=== PATIENT | female | born 1975 | race Two or more races ===

== ENCOUNTER 2023-07-05 16:28 | Emergency (ER) | payer BC, SELFPAY ==
[2023-07-05 16:33] VITALS: BP 122/88; PULSE 80; RESP 16; TEMP 36.9; O2SAT 98; BMI 35.4
== END 2023-07-05 17:30 | disposition left against medical advice (07) ==
PROVIDERS: Emergency Provider Emergency Medicine; PCP Nurse Practitioner
DX: Z53.21 Procedure and treatment not carried out due to patient leaving prior to being seen by health care provider (principal)

== ENCOUNTER 2023-12-24 18:59 | Emergency (ER) | payer BC, SELFPAY ==
[2023-12-24 19:05] VITALS: BP 155/101; PULSE 95; TEMP 36.7; O2SAT 99; BMI 37.4
[2023-12-24 19:08] VITALS: BP 155/101; O2SAT 99
[2023-12-24 19:10] VITALS: O2SAT 98
--- NOTE | 2023-12-24 19:10 | ECG_ITS ---
[facility] Test Date: 2023-12-24 Pat Name: BECKY OLIVAS Department: Room: - Gender: Female [employer]oc[employer] In[employer]: : [id number] Requested By: KARI RICHARDSON Order Number: [id number] Reading MD: SIENNA BLEVINS Measurements Intervals [place] Rate: 96 P: 24 [place]: 148 QRS: 31 QRSD: 84 T: 6 QT: 320 QTc: 374 Interpretive Statements 1100 Sinus rhythm 2420 RSR (QR) in lead V1/V2, consistent with right ventricular conduction delay 8102 Low QRS voltage in chest leads 9130 borderline ECG Compared to ECG 12/19/2022 05:13:13 No significant changes Electronically Signed On 12-26-2023 10:47:24 EDT by SIENNA BLEVINS
--- OUTSIDE RECORDS SUMMARY | 2023-12-24 19:15 | XMS_ITS | CCD ---
Author Organization [facility] Care Team Providers Care Maintenance Aide Name Role Phone LAURE, DR LILA Pozo Consulting Unavailable AICHHOLZ, TWISTING FRAME CHANGER KARI Primary Care Unavailable WEST, DR LILA Pozo Attending Unavailable LAURE, DR LILA Pozo Admitting Unavailable ZIEBER, DR BRIAN Duran Consulting Unavailable AICHHOLZ, TWISTING FRAME CHANGER KARI Primary Care Unavailable WEST, DR LILA Pozo Attending Unavailable LAURE, DR LILA Pozo Admitting Unavailable LAURE, DR LILA Pozo Consulting Unavailable AICHHOLZ, TWISTING FRAME CHANGER KARI Primary Care Unavailable WEST, DR LILA Pozo Attending Unavailable LAURE, DR LILA Pozo Admitting Unavailable ZIEBER, DR BRIAN Duran Consulting Unavailable LISHA ORTIZ Consulting Unavailable ANGEL, LISHA Attending Unavailable ANGEL, LISHA Admitting Unavailable AICHHOLZ, TWISTING FRAME CHANGER KARI Primary Care Unavailable ANTHONY TAMEZ Consulting Unavailable ARIADNE CASILLAS Consulting Unavailable CHELSY .MALCOLM Consulting Unavailable AICHHOLZ, TWISTING FRAME CHANGER KARI Primary Care Unavailable ANASTASIIA .MICKEY Attending Unavailable ANASTASIIA ., MICKEY Admitting Unavailable MICKEY MARISCAL Consulting Unavailable KINGA .JACINTO Consulting UnavailBrian Macias, DR NAVARRO Attending Unavailable ROX ., DR NAVARRO Admitting Unavailable AICHHOLZ, TWISTING FRAME CHANGER KARI Primary Care Unavailable SHERIDANSER, KARI Consulting Unavailable AICHHOLZ, TWISTING FRAME CHANGER KARI Consulting Unavailable AICHHOLZ, TWISTING FRAME CHANGER KARI Primary Care Unavailable AICHHOLZ, TWISTING FRAME CHANGER KARI Attending Unavailable AICHHOLZ, TWISTING FRAME CHANGER KARI Admitting Unavailable AICHHOLZ, TWISTING FRAME CHANGER KARI Consulting Unavailable AICHHOLZ, TWISTING FRAME CHANGER KARI Primary Care Unavailable AICHHOLZ, TWISTING FRAME CHANGER KARI Attending Unavailable AICHHOLZ, TWISTING FRAME CHANGER KARI Admitting Unavailable MARKOS, DR BRIAN Duran Consulting Unavailable AICHHOLZ, TWISTING FRAME CHANGER KARI Consulting Unavailable AICHHOLZ, TWISTING FRAME CHANGER KARI Primary Care Unavailable AICHHOLZ, TWISTING FRAME CHANGER KARI Attending Unavailable AICHHOLZ, TWISTING FRAME CHANGER KARI Admitting Unavailable MARKOS, DR BRIAN Duran Consulting Unavailable LAURE, DR LILA Pozo Consulting Unavailable AICHHOLZ, TWISTING FRAME CHANGER KARI Primary Care Unavailable WEST, DR LILA Pozo Attending Unavailable LAURE, DR LILA Pozo Admitting Unavailable WEST, DR LILA Pozo Consulting Unavailable HANSATOMAS VELASQUEZ Attending Unavailable HANSATOMAS VELASQUEZ Admitting Unavailable HANSATOMAS VELASQUEZ Primary Care Unavailable TOMAS RICHARDSON Consulting Unavailable LAURE, DR LILA Pozo Consulting Unavailable TOMAS RICHARDSON Primary Care Unavailable LAURE, DR LILA Pozo Attending Unavailable LAURE, DR LILA Pozo Admitting Unavailable Allergies Allergy Classification Reported Allergen(s) Allergy Type Date of Onset Reaction(s) Facility (1 source) Ibuprofen Drug Allergy 02-04-2016 [facility] Repository Problems Active Problems Problem Classification Problem Date Documented Da te Episodic/Chronic Diverticulosis and diverticulitis (1 source) Diverticulitis of large intestine without perforation or abscess without bleeding; Translations: [DVTRCLI LG INT NO PERF/ABSC W/O BL] Onset: 2 Chronic Headache; including migraine (4 sources) Headache; including migraine; Translations: [HEADACHE UNSPECIFIED] Onset: 3 Phlebitis; thrombophlebitis and thromboembolism (8 sources) Phlebitis and thrombophlebitis of superficial vessels of left lower extremity; Translations: [Phlebitis and thrombophlebitis of superficial vessels of right lower extremity] Onset: 3 Episodic Residual codes; unclassified (1 source) Chills (without fever); Translations: [CHILLS WITHOUT FEVER] Onset: 3 Episodic Varicose veins of lower extremity (4 sources) Varicose veins of bilateral lower extremities with pain; Translations: [VARICOSE VNS KAREEM LOW EXTREM W/PAIN] Onset: 3 Episodic Viral infection (4 sources) COVID-19; Translations: [COVID-19] Onset: 2 Past or Other Problems Problem Classification Problem Date Documented Da te Episodic/Chronic Abdominal pain (4 sources) Unspecified abdominal pain; Translations: [UNSPECIFIED ABDOMINAL PAIN] Onset: 07-12-2022 Episodic Contraceptive and procreative management (1 source) Tubal ligation status; Translations: [TUBAL LIGATION STATUS] Onset: 07-15-2022 Episodic Fever of unknown origin (3 sources) Fever, unspecified; Translations: [FEVER UNSPECIFIED] Onset: 01-20-2022 Episodic Malaise and fatigue (1 source) Weakness; Translations: [WEAKNESS] Onset: 01-30-2022 Episodic Nausea and vomiting (1 source) Nausea; Translations: [NAUSEA] Onset: 07-15-2022 Episodic Other gastrointestinal disorders (1 source) Diarrhea, unspecified; Translations: [DIARRHEA UNSPECIFIED] Onset: 07-15-2022 Episodic Other non-traumatic joint disorders (4 sources) Pain in left knee; Translations: [PAIN IN LEFT KNEE] Onset: 08-10-2022 Episodic Other upper respiratory infections (1 source) Acute upper respiratory infection, unspecified; Translations: [ACUTE UP RESPIRATORY INFECTION UNS] Onset: 01-23-2022 Episodic Urinary tract infections (1 source) Urinary tract infection, site not specified; Translations: [UTI SITE NOT SPECIFIED] Onset: 07-15-2022 Episodic Results Test Name Value Interpretation Reference Range Facility CARDIAC VENKATA 3-6on 3 CK [Catalytic activity/Vol] 78 U/L Normal 26-192 [facility] Comment on above: Performed By: #### C BC #### [facility] [address] [place] [address] Dr. Castro Alcaraz CK.MB [Mass/Vol] 0.67 ng/mL Normal <=3.60 [facility] Comment on above: Performed By: #### C BC #### [facility] [address] [place] [address] Dr. Castro Alcaraz HSTROP 4.0 pg/mL Normal 4.0-51.3 [facility] Comment on above: Result Comment: CUT- OFF POINTS HAVE BEEN ESTABLISHED BASED ON THE FOURTH UNIVERSAL DEFINITIONS OF MYOCARDIAL INFARCTION. THE UPPER REFERENCE LIMIT (URL) OF TROPONIN, DEFINED THE 99TH PERCENTILE OF cTnI DISTRIBUTION IN A REFERENCE POPULATION, HAS BEEN CONFIRMED THE DECISION THRESHOLD FOR DE DIAGNOSIS. Performed By: #### C BC #### [facility] [address] [address] [address] Castro Alcaraz CARDIAC VENKATA ADMITon 023 CK [Catalytic activity/Vol] 88 U/L Normal 26-192 [facility] Comment on above: Performed By: #### SHERLY HARVEY #### [facility] [address] [place] [address] Dr. Castro Alcaraz CK.MB [Mass/Vol] ng/mL Normal <=3.60 [facility] Comment on above: Performed By: #### SHERLY HARVEY #### [facility] [address] [place] [address] Dr. Castro Alcaraz HSTROP <4.0 Normal 4.0-51.3 [facility] Comment on above: Result Comment: CUT- OFF POINTS HAVE BEEN ESTABLISHED BASED ON THE FOURTH UNIVERSAL DEFINITIONS OF MYOCARDIAL INFARCTION. THE UPPER REFERENCE LIMIT (URL) OF TROPONIN, DEFINED THE 99TH PERCENTILE OF cTnI DISTRIBUTION IN A REFERENCE POPULATION, HAS BEEN CONFIRMED THE DECISION THRESHOLD FOR DE DIAGNOSIS. Performed By: #### SHERLY HARVEY #### [facility] [address] [place] [address] Dr. Castro Alcaraz KELLY 33 ng/mL Normal 9-82 [facility] Comment on above: Performed By: #### SHERLY HARVEY #### [facility] [address] [place] [address] Dr. Castro Alcaraz CBC AUTO DIFFon 12-19-2022 BASO # 0.1 103/ul Normal 0.0-0.1 [facility] Comment on above: Performed By: #### C BC #### [facility] [address] [place] [address] Dr. Castro Alcaraz Basophils/100 WBC (Bld) 0.4 % Normal 0.2-2.0 [facility] Comment on above: Performed By: #### C BC #### [facility] [address] [place] [address] Dr. Castro Alcaraz EO # 0.2 103/ul Normal 0.0-0.7 [facility] Comment on above: Performed By: #### C BC #### [facility] [address] [place] [address] Dr. Castro Alcaraz Eosinophils/100 WBC (Bld) 1.8 % Normal 0.9-7.0 [facility] Comment on above: Performed By: #### C BC #### [facility] [address] [place] [address] Dr. Castro Alcaraz Erythrocyte distribution width (RBC) [Ratio] 13.1 % Normal 11.0-15.0 [facility] Comment on above: Performed By: #### C BC #### [facility] [address] [place] [address] Dr. Castro Alcaraz Hematocrit (Bld) [Volume fraction] 40.5 % Normal 36.0-48.0 [facility] Comment on above: Performed By: #### C BC #### [facility] [address] [place] [address] Dr. Castro Alcaraz Hemoglobin (Bld) [Mass/Vol] 13.3 g/dL Normal 12.0-16.0 [facility] Comment on above: Performed By: #### C BC #### [facility] [address] [place] [address] Dr. Castro Alcaraz IG # 0.03 10e3/ul Normal 0.00-0.03 [facility] Comment on above: Performed By: #### C BC #### [facility] [address] [place] [address] Dr. Castro Alcaraz IG % 0.3 % Normal 0.0-0.5 [facility] Comment on above: Performed By: #### C BC #### [facility] [address] [place] [address] Dr. Castro Alcaraz LYMPH # 4.9 103/ul Critically high 1.2-3.8 [facility] Comment on above: Performed By: #### C BC #### [facility] [address] [place] [address] Dr. Castro Alcaraz Lymphocytes/100 WBC (Bld) 43.0 % Normal 20.5-60.0 [facility] Comment on above: Performed By: #### C BC #### [facility] [address] [place] [address] Dr. Castro Alcaraz MANUAL DIFF REQ NO Normal [facility] Comment on above: Performed By: #### C BC #### [facility] [address] [place] [address] Dr. Castro Alcaraz MCH (RBC) [Entitic mass] 28.7 pg Normal 26.7-34.0 [facility] Comment on above: Performed By: #### C BC #### [facility] [address] [place] [address] Dr. Castro Alcaraz MCHC (RBC) [Mass/Vol] 32.8 g/dL Normal 29.9-35.2 [facility] Comment on above: Performed By: #### C BC #### [facility] [address] [place] [address] Dr. Castro Alcaraz MCV (RBC) [Entitic vol] 87.3 fL Normal 81.0-99.0 [facility] Comment on above: Performed By: #### C BC #### [facility] [address] [place] [address] Dr. Castro Alcaraz MONO # 0.7 103/ul Normal 0.3-0.8 [facility] Comment on above: Performed By: #### C BC #### [facility] [address] [place] [address] Dr. Castro Alcaraz Monocytes/100 WBC (Bld) 6.2 % Normal 1.7-12.0 [facility] Comment on above: Performed By: #### C BC #### [facility] [address] [place] [address] Dr. Castro Alcaraz NEUT # 5.6 103/ul Normal 1.4-6.5 [facility] Comment on above: Performed By: #### C BC #### [facility] [address] [place] [address] Dr. Castro Alcaraz Neutrophils/100 WBC (Bld) 48.3 % Normal 43.0-75.0 [facility] Comment on above: Performed By: #### C BC #### [facility] [address] [place] [address] Dr. Castro Alcaraz Platelet mean volume (Bld) [Entitic vol] 10.6 fL Normal 9.5-13.5 [facility] Comment on above: Performed By: #### C BC #### [facility] [address] [place] [address] Dr. Castro Alcaraz PLT 280 103/ul Normal 150-450 [facility] Comment on above: Performed By: #### C BC #### [facility] [address] [address] [address] Castro Alcaraz RBC 4.64 106/ul Normal 4.20-5.40 [facility] Comment on above: Performed By: #### C BC #### [facility] [address] [id number] Castro Alcaraz WBC 11.5 103/ul Critically high 4.0-11.0 [facility] Comment on above: Performed By: #### C BC #### [facility] [id number] Castro Alcaraz CT STROKE HEAD WOon 12-20-[address] STROKE HEAD WO INDICATION: 46 years old; Female. Left-sided numbness and tingling 20 minutes ago. Chest pain and chills for 2 weeks. TECHNIQUE: CT Head (ax/cor/sag reformats). Ionizing radiation dose reduced via iterative reconstruction/FBP blend and body size kV/mA adjustment. Comparison: None FINDINGS: POSTOPERATIVE CHANGES: None. BRAIN PARENCHYMA: No focal lesions. No mass effect. No midline shift or herniation. No intraparenchymal or extra-axial hemorrhage. Normal white/white differentiation. VENTRICLES/EXTRA-AXIA L SPACES: Normal for patient's age. SINUSES/MASTOIDS: The visualized sinuses are clear. Mastoid air cells are clear. MSK: No displaced or depressed calvarial fracture is noted. OTHER: No hyperdense intraluminal thrombus is seen. IMPRESSION: 1. No acute intracranial abnormality. If there is concern for acute infarction, then MRI with diffusion imaging would be more sensitive. Electronically authenticated by: ANTHONY TAMEZ Date: 2022-12-19 02:18 Normal [facility] ER URINE PROFILEon 3 Bilirubin Ql (U) Negative Normal NEGATIVE [facility] Comment on above: Performed By: #### C BC #### [facility] [address] [address] [address] Castro Alcaraz Clarity (U) CLEAR Normal CLEAR [facility] Comment on above: Performed By: #### C BC #### [facility] [address] [address] [address] Castro Alcaraz Color (U) LT. YELLOW Normal YELLOW [facility] Comment on above: Performed By: #### C BC #### [facility] [address] [place] [address] Dr. Castro SIAGLA A micrscopic examination will be performed if indicated. Normal [facility] Comment on above: Performed By: #### C BC #### [facility] [address] [place] [address] Dr. Castro Alcaraz Glucose Ql (U) Negative Normal NEGATIVE [facility] Comment on above: Performed By: #### C BC #### [facility] [address] [address] [address] Castro Alcaraz Hemoglobin Ql (U) Negative Normal NEGATIVE [facility] Comment on above: Performed By: #### C BC #### [facility] [address] [place] [address] Dr. Castro Alcaraz Ketones Ql (U) Negative Normal NEGATIVE [facility] Comment on above: Performed By: #### C BC #### [facility] [address] [place] [address] Dr. Castro Alcaraz LEUKOCYTES SMALL Abnormal NEGATIVE [facility] Comment on above: Performed By: #### C BC #### [facility] [address] [place] [address] Dr. Castro Alcaraz Nitrite Ql (U) Negative Normal NEGATIVE [facility] Comment on above: Performed By: #### C BC #### [facility] [address] [place] [address] Dr. Castro Alcaraz pH (U) 6.0 [pH] Normal 5-9 [facility] Comment on above: Performed By: #### C BC #### [facility] [address] [place] [address] Dr. Castro Alcaraz SPEC GRAVITY 1.015 Normal 1.005-<=1.025 [facility] Comment on above: Performed By: #### C BC #### [facility] [address] [place] [address] Dr. Castro Alcaraz UA PROTEIN Negative Normal NEGATIVE/ TRACE [facility] Comment on above: Performed By: #### C BC #### [facility] [address] [place] [address] Dr. Catsro Alcaraz UR MICRO IND INDICATED Normal [facility] Comment on above: Performed By: #### C BC #### [facility] [address] [place] [address] Dr. Castro Alcaraz Urobilinogen Qn (U) 0.2 {Tino'U}/dL Normal 0.2 - 1. 0 [facility] Comment on above: Performed By: #### C BC #### [facility] [address] [place] [address] Dr. Castro Alcaraz LACTATE/LACTIC ACIDon 2022 Lactate [Moles/Vol] 1.5 mmol/L Normal 0.4-2.0 [facility] Comment on above: Performed By: #### L ACT #### [facility] [address] [place] [address] Dr. Castro Alcaraz Lactate [Moles/Vol] 1.8 mmol/L Normal 0.4-2.0 [facility] Comment on above: Performed By: #### L ACT #### [facility] [address] [place] [address] Dr. Castro Alcaraz PROF CHEM 8 (BAS METB)on Anion gap [Moles/Vol] 13.9 mmol/L Normal [facility] Comment on above: Performed By: #### SHERLY HARVEY #### [facility] [address] [place] [address] Dr. Castro Alcaraz Calcium [Mass/Vol] 9.0 mg/dL Normal 8.5-10.1 [facility] Comment on above: Performed By: #### SHERLY HARVEY #### [facility] [address] [place] [address] Dr. Castro Alcaraz Chloride [Moles/Vol] 103 mmol/L Normal 98-107 [facility] Comment on above: Performed By: #### SHERLY HARVEY #### [facility] [address] [place], [place] [id number] Dr. Castro Alcaraz CO2 [Moles/Vol] 25.8 mmol/L Normal 21.0-32.0 [facility] Comment on above: Performed By: #### SHERLY HARVEY #### [facility] [address] [address] [address] Castro Alcaraz Creatinine [Mass/Vol] 0.80 mg/dL Normal 0.55-1.02 [facility] Comment on above: Performed By: #### SHERLY HARVEY #### [facility] [address] [address] [address] Castro Alcaraz EGFR-AF CITIZEN OF [place] >60 Normal >=60 [facility] Comment on above: Performed By: #### SHERLY HARVEY #### [facility] [address] [place] [address] Dr. Castro Alcaraz EGFR-NON AF CITIZEN OF THE [place] >60 Normal >=60 [facility] Comment on above: Performed By: #### SHERLY HARVEY #### [facility] [address] [place] [address] Dr. Castro Alcaraz Glucose [Mass/Vol] 109 mg/dL Critically high 74-106 [facility] Comment on above: Performed By: #### SHERLY HARVEY #### [facility] [address] [place] [address] Dr. Castro Alcaraz Potassium [Moles/Vol] 3.7 mmol/L Normal 3.5-5.1 [facility] Comment on above: Performed By: #### SHEFALI HARVEYRO #### [facility] [address] [address] [address] Castro Alcaraz Sodium [Moles/Vol] 139 mmol/L Normal 136-145 [facility] Comment on above: Performed By: #### SHEFALI HARVEYRO #### [facility] [address] [place] [address] Dr. Castro Alcaraz Urea nitrogen [Mass/Vol] 14.0 mg/dL Normal 7.0-18.0 [facility] Comment on above: Performed By: #### SHERLY HARVEY #### [facility] [address] [place] [address] Dr. Castro Alcaraz Urea nitrogen/Creatinine [Mass ratio] 17.5 mg/mg Normal [facility] Comment on above: Performed By: #### SHERLY HARVEY #### [facility] [address] [place] [address] Dr. Castro Alcaraz URINE MICROSCOPIC ONLYon BACTERIA NONE SEEN Normal NONE SEEN [facility] Comment on above: Performed By: #### C BC #### [facility] [address] [place] [address] Dr. Castro Alcaraz Bacteria identified Cx Nom (U) NOT INDICATED Normal [facility] Comment on above: Performed By: #### C BC #### [facility] [address] [place] [address] Dr. Castro Alcaraz CAST NONE SEEN Normal NONE SEEN [facility] Comment on above: Performed By: #### C BC #### [facility] [address] [place] [address] Dr. Castro Alcaraz Crystals LM Nom (Urine sed) NONE SEEN Normal NONE SEEN [facility] Comment on above: Performed By: #### C BC #### [facility] [address] [place] [address] Dr. Castro Alcaraz Epithelial cells LM Ql (Urine sed) NONE SEEN Normal NONE SEEN /RARE [facility] Comment on above: Performed By: #### C BC #### [facility] [address] [place] [address] Dr. Castro Alcaraz MUCOUS NONE SEEN Normal NONE SEEN [facility] Comment on above: Performed By: #### C BC #### [facility] [address] [place] [address] Dr. Castro Alcaraz RBC 0-2 Normal 0-2 [facility] Comment on above: Performed By: #### C BC #### [facility] [address] [place] [address] Dr. Castro Alcaraz WBC 0-2 Abnormal NONE SEEN [facility] Comment on above: Performed By: #### C BC #### [facility] [address] [place], [place] [address] Dr. Castro Alcaraz XR CHEST 2 Von 12-19-2022 XR CHEST 2 V EXAM: XR CHEST 2 V HISTORY: COUGH COMPARISON: Chest x-ray 06/25/2020 TECHNIQUE: 2 view chest x-rays frontal and lateral FINDINGS: No lung consolidation, large pleural effusions, pneumothorax, or acute bony abnormality. Cardiac size is unremarkable. IMPRESSION: No radiographic evidence for acute chest abnormality. Electronically authenticated by: ARIADNE CASILLAS Date: 2022-12-19 03:48 Normal [facility] VC CONSULT FOLLOWUPon 2022 VC CONSULT FOLLOWUP Patient: BECKY OLIVAS Exam Date: 11/26/2022 : 1975 Gender:F Ordering : DR LILA KELSEY M.D. Admission #: [id number] Family : Order #: [id number] CLICK HERE TO VIEW EXAM RADIOLOGY REPORT PROCEDURE: VEIN CENTER CONSULTATION FOLLOWUP VEIN CENTER - OFFICE VISIT FOLLOW UP COMPARISON: VC CONSULT FOLLOWUP, 11/06/2022. PROGRESS NOTES: The patient reports no significant difficulty following intravenous laser ablation of the left great saphenous vein. The patient did not require oral analgesics. The patient has worn her compression stocking. The patient has followed our recommendations to walk 20-30 minutes once or twice per day since the procedure. The patient reports some improvement in her symptoms however she does continue to have cramps towards the end of the day. Physical exam demonstrates 2 small areas of bruising in the medial left thigh measuring approximately 1 and 2 cm respectively. A thrombosed great saphenous vein can be partially palpated. No areas of erythema or warmth to suggest cellulitis or thrombophlebitis. No active ulceration Review of the ultrasound performed the same day demonstrates occlusive thrombus extending throughout the treated left great saphenous vein with heat induced thrombus 1.5 cm from the saphenofemoral junction. The patient expressed a desire to proceed with treatment of incompetent varicose veins with micro foam chemical ablation. IMPRESSION: 1. Successful ablation of the left great saphenous vein 2. Persistent bilateral incompetent varicose veins PLAN: Micro foam chemical ablation of the right leg Nurse notes, history and physical were reviewed and confirmed, see attached forms. The nurse was present throughout the physical exam and consultation Dictated by: Lila Kelsey MD on 11/26/2022 at 12:18 Approved by: Lila Kelsey MD on 11/26/2022 at 12:20 [facility] [facility] VC EXT VENOUS LT LIMITEDon 0 11-26-2022 VC EXT VENOUS LT LIMITED Patient: BECKY OLIVAS Exam Date: 11/26/2022 : 1975 Gender:F Ordering : DR LILA KELSEY M.D. Admission #: [id number] Family : Order #: [id number] CLICK HERE TO VIEW EXAM RADIOLOGY REPORT PROCEDURE: VEIN CENTER EXTREMITY VENOUS LEFT LIMITED COMPARISON: None. INDICATIONS: Phlebitis of superficial veins of lower extremity I80.02 TECHNIQUE: Lower extremity daley scale and Duplex Doppler evaluation of the deep venous system from the inguinal ligament through the calf veins. FINDINGS: REGION: Left lower extremity. THROMBI: Negative for DVT. Heat induced thrombus visualized 1.5 cm from the SFJ. The heat induced thrombus extends from groin to distal thigh. COMPRESSIBILITY: Non-compressible segments corresponding to thrombus. FLOW: Absent flow corresponding to thrombus *Exam performed in accordance with [facility] practice guidelines- Peripheral venous ultrasound, November 16, 2009. CONCLUSION: Post ablation occlusion the left great saphenous vein with heat induced thrombus 1.5 cm from the saphenofemoral junction Dictated by: Lila Kelsey MD on 11/26/2022 at 11:50 Approved by: Lila Kelsey MD on 11/26/2022 at 11:51 Normal [facility] VC ENDOVENOUS ABL 1ST V LTon 11-19-2022 VC ENDOVENOUS ABL 1ST V LT Patient: BECKY OLIVAS Exam Date: 11/19/2022 : 1975 Gender:F Ordering : DR LILA KELSEY M.D. Admission #: [id number] Family : Order #: [id number] CLICK HERE TO VIEW EXAM RADIOLOGY REPORT PROCEDURE: VEIN CENTER ENDOVENOUS ABLATION FIRST VEIN LEFT COMPARISON: None. INDICATIONS: Pain co-occurrent and due to varicose veins of bilateral legs OPERATIVE REPORT: The risks and benefits of the procedure had been previously discussed, and were rediscussed at length. Informed written consent was obtained by me and Michael oliveros. Time out procedure was performed. The left lower extremity was prepared and draped in the usual sterile fashion to allow knee flexion in the sterile field. Duplex ultrasound probe was draped in a sterile cover, sterile transmission gel was used. Venous mapping was performed with the areas of dilation and large tributaries marked. The total length was 17 cm from the entry distal thigh to 3 cm below the saphenofemoral junction. The diameter of the great saphenous vein ranged from 6-11 mm. A 30 gauge needle and 1% buffered lidocaine was used to anesthetize the entry site. A 4 mm incision was made with a scalpel and the saphenous vein was entered percutaneously under direct ultrasound guidance with a micropuncture set, a single stick was successful in gaining access. A micro-guide wire was inserted and the needle removed. A micro-set including a dilator was inserted over the microwire and the needle and dilator were removed. A 0.018 guide wire was inserted through the micro-set and threaded through the saphenous vein to the saphenofemoral junction. The dilator was removed and an introducer sheath was inserted over the wire until the end of the sheath entered the saphenofemoral junction. The dilator and wire were removed and the 600 micron fiber was introduced and placed and positioned so that it extended beyond the sheath and was 3 cm peripheral to the saphenofemoral femoral junction. Final position of the fiber was determined by ultrasound guidance and duplex imaging. Tumescent anesthetic was delivered by ultrasound guidance. 100 cc of fluid was delivered along the entire course of the saphenous vein. The solution consisted of 500 cc of normal saline with 20mL of 1% lidocaine and 10 mL of sodium bicarbonate. A final positioning check was made. The energy source was turned on by means of the foot pedal and the fiber and sheath were withdrawn. The total number of Joules delivered was 791. The laser was active for 99 seconds under continuous pulse, average laser use of 8 J. Laser start time 13:47 11/19/22. Laser stop time 13:48 11/19/22. A duplex ultrasound revealed compressibility and flow at the saphenofemoral junction immediately after the procedure. Hemostasis at the access site was achieved. The skin incision of the saphenous vein was closed with a 4 x 4. A compression stocking was applied. Postop instructions were given. A follow up appointment was recommended and scheduled. The patient tolerated the procedure well and was discharged in good condition. CONCLUSION: 1. Technically successful endovenous laser ablation of the left great saphenous vein. Dictated by: Lila Kelsey MD on 11/19/2022 at 13:50 Approved by: Lila Kelsey MD on 11/19/2022 at 13:56 Normal [facility] VC CONSULT FOLLOWUPon 2022 VC CONSULT FOLLOWUP Patient: BECKY OLIVAS Exam Date: 11/06/2022 : 1975 Gender:F Ordering : DR LILA KELSEY M.D. Admission #: [id number] Family : Order #: [id number] CLICK HERE TO VIEW EXAM RADIOLOGY REPORT PROCEDURE: VEIN CENTER CONSULTATION FOLLOWUP VEIN CENTER - OFFICE VISIT FOLLOW UP COMPARISON: None. PROGRESS NOTES: The patient reports some improvement in right leg symptoms , along with tenderness and medial upper right thigh. There has been interval reduction in varicosities. The patient has followed our recommendations to walk 20-30 minutes once or twice per day since the procedure. Physical exam demonstrates decrease in varicosities of the right leg; no evidence of infection. Small bruising noted. Persistent varicosities are identified along the right leg. Review of the ultrasound performed the same day demonstrates occlusive thrombus extending throughout the treated vein, see separate report, consistent with a successful ablation. No thrombus extending into or beyond the saphenofemoral junction. The patient expressed a desire to proceed with treatment of remaining incompetent varicosities. The patient was informed that treatment was a process and would require several procedures/sessions. IMPRESSION: 1. Successful ablation of the right great saphenous vein 2. Persistent incompetent varicose veins and bilateral leg symptoms PLAN: 1. Review of original bilateral venous reflux study shows dilated incompetent great saphenous and anterior accessory saphenous veins bilaterally. Endovenous laser ablation of all 4 of these vessels would be beneficial and is recommended. 2. Next step will be endovenous laser ablation of left great saphenous vein. Nurse notes, history and physical were reviewed and confirmed, see attached forms. The nurse was present throughout the physical exam and consultation Dictated by: Brian Yen M.D. on 11/06/2022 at 09:42 Approved by: Brian Yen M.D. on 11/06/2022 at 09:46 Normal [facility] VC EXT VENOUS RT LIMITEDon 0 11-06-2022 VC EXT VENOUS RT LIMITED Patient: BECKY OLIVAS Exam Date: 11/06/2022 : 1975 Gender:F Ordering : DR LILA KELSEY M.D. Admission #: [id number] Family : Order #: [id number] CLICK HERE TO VIEW EXAM RADIOLOGY REPORT PROCEDURE: VEIN CENTER EXTREMITY VENOUS RIGHT LIMITED COMPARISON: None. INDICATIONS: Phlebitis and thrombophlebitis of superficial veins of right lower extremity I80.01 TECHNIQUE: Lower extremity daley scale and Duplex Doppler evaluation of the deep venous system from the inguinal ligament through the calf veins. FINDINGS: REGION: Right lower extremity. THROMBI: Negative for DVT. Heat induced thrombus in right GSV 5.5 cm from the SFJ and extends to proximal calf. COMPRESSIBILITY: Non-compressible segments. FLOW: Areas of no flow. OTHER: CONCLUSION: 1. Successful post ablation occlusion of treated right great saphenous vein. Dictated by: Brian Yen M.D. on 11/06/2022 at 09:14 Approved by: Brian Yen M.D. on 11/06/2022 at 09:38 Normal [facility] VC ENDOVENOUS ABL 1ST V RTon 10-29-2022 VC ENDOVENOUS ABL 1ST V RT Patient: BECKY OLIVAS Exam Date: 10/29/2022 : 1975 Gender:F Ordering : DR LILA KELSEY M.D. Admission #: [id number] Family : Order #: [id number] CLICK HERE TO VIEW EXAM RADIOLOGY REPORT PROCEDURE: VEIN CENTER ENDOVENOUS ABLATION FIRST VEIN RIGHT GREAT SAPHENOUS VEIN COMPARISON: None. INDICATIONS: Pain co-occurrent and due to varicose veins of bilateral legs I83.813 OPERATIVE REPORT: The risks and benefits of the procedure had been previously discussed, and were rediscussed at length. Informed written consent was obtained by and Michael oliveros. Time out procedure was performed. The right lower extremity was prepared and draped in the usual sterile fashion to allow knee flexion in the sterile field. Duplex ultrasound probe was draped in a sterile cover, sterile transmission gel was used. Venous mapping was performed with the areas of dilation and large tributaries marked. The total length was 24 cm from the entry proximal lower leg to the proximal thigh, there was an area of proximal great saphenous vein stenosis through which I could advance the wire catheter successfully. The diameter of the greater saphenous vein ranged from 5-10 mm. A 30 gauge needle and 1% buffered lidocaine was used to anesthetize the entry site. A 4 mm incision was made with a scalpel and the saphenous vein was entered percutaneously under direct ultrasound guidance with a micropuncture set, a single stick was successful in gaining access. A micro-guide wire was inserted and the needle removed. A micro-set including a dilator was inserted over the microwire and the needle and dilator were removed. A 0.018 guide wire was inserted through the micro-set and threaded through the saphenous vein to the saphenofemoral junction. The dilator was removed and an introducer sheath was inserted over the wire until the end of the sheath entered the saphenofemoral junction. The dilator and wire were removed and the 600 micron fiber was introduced and placed and positioned so that it extended beyond the sheath and was 3 cm peripheral to the saphenofemoral femoral junction. Final position of the fiber was determined by ultrasound guidance and duplex imaging. Tumescent anesthetic was delivered by ultrasound guidance. 125 cc of fluid was delivered along the entire course of the saphenous vein. The solution consisted of 500 cc of normal saline with 20mL of 1% lidocaine and 10 mL of sodium bicarbonate. A final positioning check was made. The energy source was turned on by means of the foot pedal and the fiber and sheath were withdrawn. The total number of Joules delivered was 1137. The laser was active for 142 seconds under continuous pulse, average laser use of 8 J. Laser start time 11:11 a.m. October 29, 2022. Laser stop time 11:13 a.m. October 29, 2022. A duplex ultrasound revealed compressibility and flow at the saphenofemoral junction immediately after the procedure. Hemostasis at the access site was achieved. The skin incision of the saphenous vein was closed with a 4 x 4. A compression stocking was applied. Postop instructions were given. A follow up appointment was recommended and scheduled. The patient tolerated the procedure well and was discharged in good condition. CONCLUSION: 1. Technically successful endovenous laser ablation of the right great saphenous vein. Dictated by: Lila Kelsey MD on 10/29/2022 at 11:30 Approved by: Lila Kelsey MD on 10/29/2022 at 11:37 Normal [facility] VC COMP CONSULTATIONon 10-01 VC COMP CONSULTATION Patient: BECKY OLIVAS Exam Date: 10/01/2022 : 1975 Gender:F Ordering : [facility] Admission #: [id number] Family : Order #: [id number] CLICK HERE TO VIEW EXAM RADIOLOGY REPORT PROCEDURE: VC VEIN CENTER CONSULTATION VEIN CENTER - OFFICE VISIT INITIAL COMPARISON: None. PROGRESS NOTES: 46-year-old female who presents with a 21 year history of lower extremity pain swelling and varicose veins, her symptoms began with her 1st . The patient describes bilateral subcutaneous edema muscle cramps. Her symptoms are bilaterally symmetric. The patient describes the pain as a burning aching and heaviness. The patient rates the pain as a 10 on a scale of 1-10. 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 The patient has worn compression stockings for 10 years with only minimal improvement. The patient does take daily over the counter naproxen and Tylenol. The patient does exercise by walking 5 days per week with some relief. The patient denies any signs and symptoms to suggest arterial ischemia. The patient describes a family history of varicose veins in her mother. Heart disease in her father. Uterine cancer in her mother. . Her 3 children are 21, 16 and 14 with her oldest gradual waiting from college this year in business. The patient has never smoked. No illicit drug use. The patient does not drink alcohol. Past medical history is significant for left knee pain, allergic rhinitis, elevated glucose without definitive diagnosis of diabetes. Sinusitis. Gastroesophageal reflux disease. Irritable bowel syndrome with diarrhea. No history of deep venous thrombus or pulmonary embolus. See separate history and physical for medication list. No prior treatment for varicose or spider veins. The patient has worn stockings for at least Nursing notes were reviewed. After history and physical exam I discussed at length the pathophysiology of venous hypertension and possible treatments, therapies and strategies available. We discussed at length the importance of elevating the lower extremities above the level of the heart, increased physical activity and compression stocking use. We discussed alternatives including ligation and stripping and phlebectomy, conservative therapy with bilateral thigh-high compression stockings. We discussed intravenous laser ablation , micro foam chemical ablation and injection sclerotherapy at length. The risks benefits and alternatives were discussed. Patient's questions were answered. The patient's daughters acted as Georgian translators during periods where the patient was unable to understand the conversation. Ultrasound venous reflux study performed the same day was discussed at length with the patient. The report demonstrates severe bilateral great saphenous vein venous insufficiency with associated dilatation. Moderate to severe bilateral anterior accessory saphenous vein venous insufficiency associated dilatation period bilateral incompetent varicose veins. Left popliteal deep vein reflux PHYSICAL EXAM: The right leg demonstrates multiple large varicose and reticular veins. Few scattered spider veins. Mild subcutaneous edema distal lower leg and ankle. No active ulceration. No skin discoloration. The right leg demonstrates multiple large varicose and reticular veins. Few scattered spider veins. Minimal subcutaneous edema distal lower leg and ankle. No active ulceration. No skin discoloration. Both thighs, legs and feet were symmetrically warm to the touch. Good posterior tibial and dorsalis pedis pulses were present bilaterally. IMPRESSION: 1. Bilateral great and anterior accessory saphenous vein venous insufficiency with associated dilatation 2. Bilateral in com lower extremity varicose veins 3. Mild right and minimal lower extremity subcutaneous edema 4. No flow significant arterial disease 5. CEAP: C3, Ep, As, Pr PLAN: 1. Endovenous laser ablation right great saphenous vein great saphenous vein. If the patient has clinical improvement we may proceed with treatment the anterior accessory saphenous veins 2. Micro foam chemical ablation of incompetent varicose veins 3. Long-term use of bilateral thigh-high 20-30 mm compression stockings 4. Elevated legs and continued physical activity for symptomatic relief Nurse notes, history and physical were reviewed and confirmed, see attached forms. The nurse was present throughout the physical exam and consultation Dictated by: Lila Kelsey MD on 10/01/2022 at 12:18 Approved by: Lila Kelsey MD on 10/01/2022 at 12:30 Normal [facility] VC VENOUS REFLUX KAREEM LMTon 0 10-01-2022 VC VENOUS REFLUX KAREEM LMT Patient: BECKY OLIVAS Exam Date: 10/01/2022 : 1975 Gender:F Ordering : [facility] Admission #: [id number] Family : DR LILA KELSEY M.D. Order #: [id number] CLICK HERE TO VIEW EXAM RADIOLOGY REPORT PROCEDURE: VEIN CENTER ULTRASOUND VENOUS REFLUX BILATERAL LIMTED COMPARISON: None. INDICATIONS: Pain co-occurrent and due to varicose veins of bilateral legs I83.813 TECHNIQUE: Duplex imaging of the lower extremity to assess the deep and superficial venous system for the presence of deep or superficial venous incompetence and to document the location and severity of disease. The study includes evaluation of the great saphenous vein (GSV), anterior accessory saphenous vein (AASV) and small saphenous vein (SSV). Patient scanned in reverse Trendelenburg and standing. FINDINGS: RIGHT LOWER EXTREMITY: Saphenofemoral Junction Reflux: Yes 10.9mm 3.5 sec GSV: Diam (mm) Reflux/ Time (sec) Proximal Thigh 8.5 Yes 3.7 Mid Thigh 8.4 Yes 3.8 Distal Thigh 6.9 Yes 3.4 Prox Calf 6.8 Yes 1.9 Mid Calf 2.8 Yes 0.7 Saphenopopliteal Junction Reflux: 3.9mm Yes 0.6 SSV: Proximal Calf 3.5 Yes Mid Calf 3.6 Yes 0.3 AASV: Proximal Thigh 9.1 Yes 1.5 Mid Thigh 5.8 Yes 2.4 Distal Thigh Thrombi: No acute or chronic thrombus visualized Compressibility: Normal Flow: Normal Preforator: Dist/med calf 5.3mm with 0s reflux. Dist/med calf 4.7mm with 0s reflux. Tech Note: Incompetent GSV, SFJ, and AASV. The AASV is tortuous 4.2 cm from the SFJ. Patent varicose vein dist/med calf 4.2mm with 0.6s reflux. Patent varicose vein mid/med calf 7.1cm with 1.9s reflux. Patent varicose vein prox/med calf 6.4mm with 3.3s reflux. Patent varicose vein prox/ant thigh off of AASV 8.6mm with 1.8s reflux. LEFT LOWER EXTREMITY: Saphenofemoral Junction Reflux: Yes 11.2 mm 3.3 sec GSV: Diam (mm) Reflux/Time (sec) Proximal Thigh 6.9 Yes 3.3 Mid Thigh 6.5 Yes 1.5 Distal Thigh 5.4 Yes 1.7 Prox Calf 1.5 No Mid Calf 1.7 No Saphenopopliteal Junction Relux: 2.9 mm No SSV: Proximal Calf 2.6 No Mid Calf 3.1 No AASV: Proximal Thigh 8.4 Yes 1.6 Mid Thigh 4.2 Yes 1.1 Distal Thigh Thrombi: No acute or chronic thrombus visualized Compressibility: Normal Flow: Reflux visualized in popliteal vein [employer]: Dist/med calf 3.9mm with 0s reflux. Prox/med calf 4.2mm with 0.7s reflux. Tech Note: Incompetent SFJ, GSV, and AASV. Patent varicose vein dits/med calf 3.0mm with 0.8s reflux. Patent varicose vein prox/med calf 3.0mm with 1.1s reflux. Patent varicose vein mid/med calf 4.1mm with 0s reflux. CONCLUSION: 1. Severe bilateral great saphenous vein venous insufficiency with associated dilatation, right greater than left 2. Moderate to severe bilateral anterior accessory saphenous vein venous insufficiency associated dilatation, right greater than 3. Bilateral incompetent varicose veins 4. Deep vein reflux left popliteal vein Dictated by: Lila Kelsey MD on 10/01/2022 at 10:57 Approved by: Lila Kelsey MD on 10/01/2022 at 11:00 Normal [facility] MRI KNEE LT WO CONon 12-19-2 022 MRI KNEE LT WO CON EXAMINATION: MRI KNE E LT WO CON HISTORY: Pain of left knee joint since falling COMPARISON: XR knee left 07/22/2022 TECHNIQUE: A complete multi-planar MRI was performed. FINDINGS: MEDIAL COMPARTMENT MEDIAL MENISCUS: No visible tear or significant degeneration. CARTILAGE: No visible defect. BONES: No marrow pathology, fracture, or significant arthropathy. MCL AND MEDIAL CAPSULE: Normal medial collateral ligament and medial capsule. LATERAL COMPARTMENT LATERAL MENISCUS: No visible tear or significant degeneration. CARTILAGE: No visible defect. BONES: No marrow pathology, fracture, or significant arthropathy. LCL/POSTEROLAT COMPLEX: Normal lateral collateral ligament, fascicles, lateral capsule and ligaments. ANTERIOR COMPARTMENT PATELLA: No marrow pathology, fracture, or significant arthropathy. CARTILAGE: No visible defect. TENDONS: Normal. EFFUSION: None. No synovitis or loose bodies. ACL: Normal appearing ligament. PCL: Normal appearing ligament. MENISCOFEMORAL: Normal meniscofemoral ligaments. OTHER: Negative. IMPRESSION: 1. No abnormal or suspicious findings to account for patient's symptoms. Electronically authenticated by: BRIAN YEN Date: 2022-08-10 16:17 Normal [facility] CBC AUTO DIFFon 07-12-2022 BASO # 0.1 103/ul Normal 0.0-0.1 [facility] Comment on above: Performed By: #### C BC #### [facility] [address] [address] [address] Castro Alcaraz Basophils/100 WBC (Bld) 0.4 % Normal 0.2-2.0 [facility] Comment on above: Performed By: #### C BC #### [facility] [address] [address] [address] Castro Alcaraz EO # 0.2 103/ul Normal 0.0-0.7 [facility] Comment on above: Performed By: #### C BC #### [facility] [address] [place] [address] Dr. Castro Alcaraz Eosinophils/100 WBC (Bld) 1.3 % Normal 0.9-7.0 [facility] Comment on above: Performed By: #### C BC #### [facility] [address] [place] [address] Dr. Castro Alcaraz Erythrocyte distribution width (RBC) [Ratio] 13.5 % Normal 11.0-15.0 [facility] Comment on above: Performed By: #### C BC #### [facility] [address] [place] [address] Dr. Castro Alcaraz Hematocrit (Bld) [Volume fraction] 38.1 % Normal 36.0-48.0 [facility] Comment on above: Performed By: #### C BC #### [facility] [address] [place] [address] Dr. Castro Alcaraz Hemoglobin (Bld) [Mass/Vol] 12.7 g/dL Normal 12.0-16.0 [facility] Comment on above: Performed By: #### C BC #### [facility] [address] [place] [address] Dr. Castro Alcaraz IG # 0.03 10e3/ul Normal 0.00-0.03 [facility] Comment on above: Performed By: #### C BC #### [facility] [address] [place] [address] Dr. Castro Alcaraz IG % 0.2 % Normal 0.0-0.5 [facility] Comment on above: Performed By: #### C BC #### [facility] [address] [place] [address] Dr. Castro Alcaraz LYMPH # 3.1 103/ul Normal 1.2-3.8 [facility] Comment on above: Performed By: #### C BC #### [facility] [address] [place] [address] Dr. Castro Alcaraz Lymphocytes/100 WBC (Bld) 25.6 % Normal 20.5-60.0 [facility] Comment on above: Performed By: #### C BC #### [facility] [address] [place] [address] Dr. Castro Alcaraz MANUAL DIFF REQ NO Normal [facility] Comment on above: Performed By: #### C BC #### [facility] [address] [place] [address] Dr. Castro Alcaraz MCH (RBC) [Entitic mass] 28.4 pg Normal 26.7-34.0 [facility] Comment on above: Performed By: #### C BC #### [facility] [address] [place] [address] Dr. Castro Alcaraz MCHC (RBC) [Mass/Vol] 33.3 g/dL Normal 29.9-35.2 [facility] Comment on above: Performed By: #### C BC #### [facility] [address] [place] [address] Dr. Castro Alcaraz MCV (RBC) [Entitic vol] 85.2 fL Normal 81.0-99.0 [facility] Comment on above: Performed By: #### C BC #### [facility] [address] [place] [address] Dr. Castro Alcaraz MONO # 1.0 103/ul Critically high 0.3-0.8 [facility] Comment on above: Performed By: #### C BC #### [facility] [address] [place] [address] Dr. Castro Alcaraz Monocytes/100 WBC (Bld) 8.2 % Normal 1.7-12.0 [facility] Comment on above: Performed By: #### C BC #### [facility] [address] [place] [address] Dr. Castro Alcaraz NEUT # 7.8 103/ul Critically high 1.4-6.5 [facility] Comment on above: Performed By: #### C BC #### [facility] [address] [place] [address] Dr. Castro Alcaraz Neutrophils/100 WBC (Bld) 64.3 % Normal 43.0-75.0 [facility] Comment on above: Performed By: #### C BC #### [facility] [address] [place] [address] Dr. Castro Alcaraz Platelet mean volume (Bld) [Entitic vol] 10.7 fL Normal 9.5-13.5 [facility] Comment on above: Performed By: #### C BC #### [facility] [address] [place] [address] Dr. Castro Alcaraz PLT 261 103/ul Normal 150-450 [facility] Comment on above: Performed By: #### C BC #### [facility] [address] [place] [address] Dr. Castro Alcaraz RBC 4.47 106/ul Normal 4.20-5.40 [facility] Comment on above: Performed By: #### C BC #### [facility] [address] [place] [address] Dr. Castro Alcaraz WBC 12.2 103/ul Critically high 4.0-11.0 [facility] Comment on above: Performed By: #### C BC #### [facility] [address] [place] [address] ABD/PELV W CONon 07-12-[address] ABD/PELV W CON CT ABDOMEN AND PELVI S WITH CONTRAST: INDICATION: Acute appendicitis. COMPARISON: None. TECHNIQUE:Multiple thin section transaxial slices were acquired through the abdomen and pelvis with intravenous contrast. Coronal and sagittal reconstructed images were reviewed. Oral contrastWas not administered. FINDINGS: LOWER CHEST: There are dependent changes in the lung bases. LIVER: There is a cyst in the liver measuring 9 mm. GALLBLADDER AND BILIARY SYSTEM: No obvious ductal dilation. No calcified stones. SPLEEN: The spleen is unremarkable. PANCREAS: The pancreas is unremarkable. ADRENAL GLANDS: The adrenal glands are unremarkable. KIDNEYS AND URETERS: There is no hydronephrosis of the kidneys.No obstructing urologic calcifications are present. VASCULATURE: Vascularity is unremarkable. PERITONEUM/RETROPERIT ONEUM: Peritoneum/retroperit oneum is unremarkable. LYMPH NODES: No suspicious lymphadenopathy. GASTROINTESTINAL TRACT: The bowel is normal in caliber.There are acute inflammatory changes associated with the ascending colon just proximal to the level of the hepatic flexure with an associated diverticulum. This is consistent with acute diverticulitis. The appendix is visualized and is not inflamed.No acute inflammatory changes are present elsewhere in the colon. BLADDER: The urinary bladder is unremarkable. REPRODUCTIVE SYSTEM: Reproductive system is unremarkable. BODY WALL: There is a tiny fat-containing umbilical hernia. BONES: Osseous structures are unremarkable. IMPRESSION: 1. Findings of this examination are consistent with acute diverticulitis of the ascending colon. There is normal CT appearance of the appendix. Electronically authenticated by: KARI BECK Date: 2022-07-12 18:08 Normal [facility] CULTURE URINEon 07-12-2022 CULTURE URINE Culture Observations : LIGHT GROWTH OF MIXED GENITAL STANLEY. NO POTENTIAL PATHOGENS SEEN. Normal [facility] Comment on above: Performed By: #### SHEFALI HARVEYRO #### [facility] [address] [place] [address] Dr. Castro Alcaraz ER URINE PROFILEon 2 Bilirubin Ql (U) Negative Normal NEGATIVE [facility] Comment on above: Performed By: #### Wendi COVINGTON UMICRO #### [facility] [address] [address] [address] Castro Alcaraz Clarity (U) SL CLOUDY Abnormal CLEAR [facility] Comment on above: Performed By: #### Wendi COVINGTON UMHERMANRO #### [facility] [address] [address] [address] Castro Alcaraz Color (U) LT. YELLOW Normal YELLOW [facility] Comment on above: Performed By: #### SHEFALI HARVEYRO #### [facility] [address] [place] [address] Dr. Castro SIGALA A micrscopic examination will be performed if indicated. Normal [facility] Comment on above: Performed By: #### SHERLY HARVEY #### [facility] [address] [place] [address] Dr. Castro Alcaraz Glucose Ql (U) Negative Normal NEGATIVE [facility] Comment on above: Performed By: #### SHEFALI HARVEYRO #### [facility] [address] [place] [address] Dr. Castro Alcaraz Hemoglobin Ql (U) TRACE-INTACT Abnormal NEGATIVE [facility] Comment on above: Performed By: #### SHEFALI HARVEYRO #### [facility] [address] [place] [address] Dr. Castro Alcaraz Ketones Ql (U) Negative Normal NEGATIVE [facility] Comment on above: Performed By: #### SHEFALI HARVEYRO #### [facility] [address] [place] [address] Dr. Castro Alcaraz LEUKOCYTES MODERATE Abnormal NEGATIVE [facility] Comment on above: Performed By: #### SHEFALI HARVEYRO #### [facility] [address] [place] [address] Dr. Castro Alcaraz Nitrite Ql (U) Negative Normal NEGATIVE [facility] Comment on above: Performed By: #### SHEFALI HARVEYRO #### [facility] [address] [place] [address] Dr. Castro Alcaraz pH (U) 6.0 [pH] Normal 5-9 [facility] Comment on above: Performed By: #### SHEFALI HARVEYRO #### [facility] [address] [place] [address] Dr. Castro Alcaraz SPEC GRAVITY 1.030 Abnormal 1.005-<=1.025 [facility] Comment on above: Performed By: #### SHERLY HARVEY #### [facility] [address] [place] [address] Dr. Castro Alcaraz UA PROTEIN Negative Normal NEGATIVE/ TRACE [facility] Comment on above: Performed By: #### SHEFALI HARVEYRO #### [facility] [address] [place] [address] Dr. Castro Alcaraz UR MICRO IND INDICATED Normal [facility] Comment on above: Performed By: #### Wendi COVINGTON UMICRO #### [facility] [address] [place] [address] Dr. Castro Alcaraz Urobilinogen Qn (U) 0.2 {Tino'U}/dL Normal 0.2 - 1. 0 [facility] Comment on above: Performed By: #### KATY HARVEYICRO #### [facility] [address] [place] [address] Dr. Castro Alcaraz LACTATE/LACTIC ACIDon 2021 Lactate [Moles/Vol] 0.8 mmol/L Normal 0.4-1.9 [facility] Comment on above: Performed By: #### L ACT #### [facility] [address] [place] [address] Dr. Castro Alcaraz LIPASEon 07-12-2022 Lipase [Catalytic activity/Vol] 123.0 U/L Normal 73.0-393.0 [facility] Comment on above: Performed By: #### Wendi COVINGTON UMICRO #### [facility] [address] [place] [address] Dr. Castro Alcaraz URon 07-12-2022 , QUAL Negative Normal NEGATIVE [facility] Comment on above: Performed By: #### C BC #### [facility] [address] [place] [address] Dr. Castro Alcaraz PROF 14(COMP METB)on 022 Albumin [Mass/Vol] 3.6 g/dL Normal 3.4-5.0 [facility] Comment on above: Performed By: #### Wendi COVINGTON, UMICRO #### [facility] [address] [place] [address] Dr. Castro Alcaraz Albumin/Globulin [Mass ratio] 0.9 {ratio} Normal [facility] Comment on above: Performed By: #### KATY HARVEYICRO #### [facility] [address] [place] [address] Dr. Castro Alcaraz ALP [Catalytic activity/Vol] 109 U/L Normal 46-116 [facility] Comment on above: Performed By: #### Wendi COVINGTON UMICRO #### [facility] [address] [place] [address] Dr. Castro Alcaraz ALT [Catalytic activity/Vol] 17 U/L Normal 14-59 [facility] Comment on above: Performed By: #### Wendi COVINGTON UMICRO #### [facility] [address] [place] [address] Dr. Castro Alcaraz Anion gap [Moles/Vol] 9.2 mmol/L Normal [facility] Comment on above: Performed By: #### Wendi COVINGTON UMHERMANRO #### [facility] [address] [place] [address] Dr. Castro Alcaraz AST [Catalytic activity/Vol] 16 U/L Normal 15-37 [facility] Comment on above: Performed By: #### SHEFALI HARVEYRO #### [facility] [address] [place] [address] Dr. Castro Alcaraz Bilirubin [Mass/Vol] 0.5 mg/dL Normal 0.2-1.0 [facility] Comment on above: Performed By: #### Wendi COVINGTON UMICRO #### [facility] [address] [place] [address] Dr. Castro Alcaraz Calcium [Mass/Vol] 8.7 mg/dL Normal 8.5-10.1 [facility] Comment on above: Performed By: #### SHEFALI HARVEYRO #### [facility] [address] [place] [address] Dr. Castro Alcaraz Chloride [Moles/Vol] 103 mmol/L Normal 98-107 [facility] Comment on above: Performed By: #### Wendi COVINGTON UMHERMANRO #### [facility] [address] [place] [address] Dr. Castro Alcaraz CO2 [Moles/Vol] 26.7 mmol/L Normal 21.0-32.0 [facility] Comment on above: Performed By: #### SHERLY HARVEY #### [facility] [address] [address] [address] Castro Alcaraz Creatinine [Mass/Vol] 0.64 mg/dL Normal 0.55-1.02 [facility] Comment on above: Performed By: #### SHERLY HARVEY #### [facility] [address] [address] [address] Castro Alcaraz EGFR-AF CITIZEN OF THE [place] >60 Normal >=60 [facility] Comment on above: Performed By: #### SHERLY HARVEY #### [facility] [address] [place] [address] Dr. Castro Alcaraz EGFR-NON AF CITIZEN OF THE [place] >60 Normal >=60 [facility] Comment on above: Performed By: #### SHERLY HARVEY #### [facility] [address] [place] [address] Dr. Castro Alcaraz Globulin (S) [Mass/Vol] 3.9 g/dL Normal [facility] Comment on above: Performed By: #### SHERLY HARVEY #### [facility] [address] [place] [address] Dr. Castro Alcaraz Glucose [Mass/Vol] 99 mg/dL Normal 74-106 [facility] Comment on above: Performed By: #### SHERLY HARVEY #### [facility] [address] [place] [address] Dr. Castro Alcaraz Potassium [Moles/Vol] 3.9 mmol/L Normal 3.5-5.1 [facility] Comment on above: Performed By: #### SHERLY HARVEY #### [facility] [address] [place] [address] Dr. Castro Alcaraz Protein [Mass/Vol] 7.5 g/dL Normal 6.4-8.2 [facility] Comment on above: Performed By: #### SHERLY HARVEY #### [facility] [address] [place] [address] Dr. Castro Alcaraz Sodium [Moles/Vol] 135 mmol/L Critically low 136-145 [facility] Comment on above: Performed By: #### Wendi COVINGTON UMICRO #### [facility] [address] [place] [address] Dr. Castro Alcaraz Urea nitrogen [Mass/Vol] 17.0 mg/dL Normal 7.0-18.0 [facility] Comment on above: Performed By: #### Wendi COVINGTON UMICRO #### [facility] [address] [place] [address] Dr. Castro Alcaraz Urea nitrogen/Creatinine [Mass ratio] 26.6 mg/mg Normal [facility] Comment on above: Performed By: #### Wendi COVINGTON UMICRO #### [facility] [address] [place] [address] Dr. Castro Alcaraz URINE MICROSCOPIC ONLYon BACTERIA MODERATE Abnormal NONE SEEN [facility] Comment on above: Performed By: #### Wendi COVINGTON UMICRO #### [facility] [address] [place] [address] Dr. Castro Alcaraz Bacteria identified Cx Nom (U) INDICATED Normal [facility] Comment on above: Performed By: #### Wendi COVINGTON UMICRO #### [facility] [address] [place] [address] Dr. Castro Alcaraz CAST NONE SEEN Normal NONE SEEN [facility] Comment on above: Performed By: #### Wendi COVINGTON UMICRO #### [facility] [address] [place] [address] Dr. Castro Alcaraz Crystals LM Nom (Urine sed) NONE SEEN Normal NONE SEEN [facility] Comment on above: Performed By: #### Wendi COVINGTON UMICRO #### [facility] [address] [place] [address] Dr. Castro Alcaraz Epithelial cells LM Ql (Urine sed) MANY Abnormal NONE SEEN /RARE [facility] Comment on above: Performed By: #### Wendi COVINGTON UMICRO #### [facility] [address] [place] [address] Dr. Castro Alcaraz MUCOUS NONE SEEN Normal NONE SEEN [facility] Comment on above: Performed By: #### SHERYL HARVEY #### [facility] [address] [place] [address] Dr. Castro Alcaraz RBC 0-2 Normal 0-2 [facility] Comment on above: Performed By: #### SHERLY HARVEY #### [facility] [address] [place] [address] Dr. Castro Alcaraz WBC 2-5 Abnormal NONE SEEN [facility] Comment on above: Performed By: #### SHERLY HARVEY #### [facility] [address] [place] [address] Dr. Castro Alcaraz CBC AUTO DIFFon 01-26-2022 BASO # 0.0 103/ul Normal 0.0-0.1 [facility] Comment on above: Performed By: #### C BC #### [facility] [address] [place] [address] Dr. Castro Alcaraz Basophils/100 WBC (Bld) 0.3 % Normal 0.2-2.0 [facility] Comment on above: Performed By: #### C BC #### [facility] [address] [place] [address] Dr. Castro Alcaraz EO # 0.0 103/ul Normal 0.0-0.7 [facility] Comment on above: Performed By: #### C BC #### [facility] [address] [place] [address] Dr. Castro Alcaraz Eosinophils/100 WBC (Bld) 0.0 % Critically low 0.9-7.0 [facility] Comment on above: Performed By: #### C BC #### [facility] [address] [place] [address] Dr. Castro Alcaraz Erythrocyte distribution width (RBC) [Ratio] 14.0 % Normal 11.0-15.0 [facility] Comment on above: Performed By: #### C BC #### [facility] [address] [place] [address] Dr. Castro Alcaraz Hematocrit (Bld) [Volume fraction] 39.7 % Normal 36.0-48.0 [facility] Comment on above: Performed By: #### C BC #### [facility] [address] [address] [address] Castro Alcaraz Hemoglobin (Bld) [Mass/Vol] 12.9 g/dL Normal 12.0-16.0 [facility] Comment on above: Performed By: #### C BC #### [facility] [address] [address] [address] Castro Alcaraz IG # 0.17 10e3/ul Critically high 0.00-0.03 [facility] Comment on above: Performed By: #### C BC #### [facility] [address] [place] [address] Dr. Castro Alcaraz IG % 1.2 % Critically high 0.0-0.5 [facility] Comment on above: Performed By: #### C BC #### [facility] [address] [address] [address] Castro Alcaraz LYMPH # 2.4 103/ul Normal 1.2-3.8 [facility] Comment on above: Performed By: #### C BC #### [facility] [address] [place] [address] Dr. Castro Alcaraz Lymphocytes/100 WBC (Bld) 16.6 % Critically low 20.5-60.0 [facility] Comment on above: Performed By: #### C BC #### [facility] [address] [place] [address] Dr. Castro Alcaraz MANUAL DIFF REQ NO Normal [facility] Comment on above: Performed By: #### C BC #### [facility] [address] [address] [address] Castro Alcaraz MCH (RBC) [Entitic mass] 28.4 pg Normal 26.7-34.0 [facility] Comment on above: Performed By: #### C BC #### [facility] [address] [place] [address] Dr. Castro Alcaraz MCHC (RBC) [Mass/Vol] 32.5 g/dL Normal 29.9-35.2 [facility] Comment on above: Performed By: #### C BC #### [facility] [address] [place] [address] Dr. Castro Alcaraz MCV (RBC) [Entitic vol] 87.3 fL Normal 81.0-99.0 [facility] Comment on above: Performed By: #### C BC #### [facility] [address] [place] [address] Dr. Castro Alcaraz MONO # 0.6 103/ul Normal 0.3-0.8 [facility] Comment on above: Performed By: #### C BC #### [facility] [address] [place] [address] Dr. Castro Alcaraz Monocytes/100 WBC (Bld) 4.4 % Normal 1.7-12.0 [facility] Comment on above: Performed By: #### C BC #### [facility] [address] [place] [address] Dr. Castro Alcaraz NEUT # 11.2 103/ul Critically high 1.4-6.5 [facility] Comment on above: Performed By: #### C BC #### [facility] [address] [place] [address] Dr. Castro Alcaraz Neutrophils/100 WBC (Bld) 77.5 % Critically high 43.0-75.0 [facility] Comment on above: Performed By: #### C BC #### [facility] [address] [place] [address] Dr. Castro Alcaraz Platelet mean volume (Bld) [Entitic vol] 10.7 fL Normal 9.5-13.5 [facility] Comment on above: Performed By: #### C BC #### [facility] [address] [place] [address] Dr. Castro Alcaraz PLT 360 103/ul Normal 150-450 [facility] Comment on above: Performed By: #### C BC #### [facility] [address] [place] [address] Dr. Castro Alcaraz RBC 4.55 106/ul Normal 4.20-5.40 [facility] Comment on above: Performed By: #### C BC #### [facility] [address] [place] [address] Dr. Castro Alcaraz WBC 14.4 103/ul Critically high 4.0-11.0 [facility] Comment on above: Performed By: #### C BC #### [facility] [address] [place] [address] Dr. Castro Alcaraz PROF 14(COMP METB)on 022 Albumin [Mass/Vol] 3.5 g/dL Normal 3.4-5.0 [facility] Comment on above: Performed By: #### C BC #### [facility] [address] [place] [address] Dr. Castro Alcaraz Albumin/Globulin [Mass ratio] 0.9 {ratio} Normal [facility] Comment on above: Performed By: #### C BC #### [facility] [address] [place] [address] Dr. Castro Alcaraz ALP [Catalytic activity/Vol] 108 U/L Normal 46-116 [facility] Comment on above: Performed By: #### C BC #### [facility] [address] [place] [address] Dr. Castro Alcaraz ALT [Catalytic activity/Vol] 47 U/L Normal 14-59 [facility] Comment on above: Performed By: #### C BC #### [facility] [address] [place] [address] Dr. Castro Alcaraz Anion gap [Moles/Vol] 14.3 mmol/L Normal [facility] Comment on above: Performed By: #### C BC #### [facility] [address] [place] [address] Dr. Castro Alcaraz AST [Catalytic activity/Vol] 13 U/L Critically low 15-37 [facility] Comment on above: Performed By: #### C BC #### [facility] [address] [place] [address] Dr. Castro Alcaraz Bilirubin [Mass/Vol] 0.4 mg/dL Normal 0.2-1.0 [facility] Comment on above: Performed By: #### C BC #### [facility] [address] [place] [address] Dr. Castro Alcaraz Calcium [Mass/Vol] 9.0 mg/dL Normal 8.5-10.1 [facility] Comment on above: Performed By: #### C BC #### [facility] [address] [place] [address] Dr. Castro Alcaraz Chloride [Moles/Vol] 100 mmol/L Normal 98-107 [facility] Comment on above: Performed By: #### C BC #### [facility] [address] [place] [address] Dr. Castro Alcaraz CO2 [Moles/Vol] 25.3 mmol/L Normal 21.0-32.0 [facility] Comment on above: Performed By: #### C BC #### [facility] [address] [place] [address] Dr. Castro Alcaraz Creatinine [Mass/Vol] 0.78 mg/dL Normal 0.55-1.02 [facility] Comment on above: Performed By: #### C BC #### [facility] [address] [place] [address] Dr. Castro Alcaraz EGFR-AF CITIZ[place] >60 Normal >=60 [facility] Comment on above: Performed By: #### C BC #### [facility] [address] [place] [address] Dr. Castro Alcaraz EGFR-NON AF CITIZEN OF [place] >60 Normal >=60 [facility] Comment on above: Performed By: #### C BC #### [facility] [address] [place] [address] Dr. Castro Alcaraz Globulin (S) [Mass/Vol] 4.0 g/dL Normal [facility] Comment on above: Performed By: #### C BC #### [facility] [address] [place] [address] Dr. Castro Alcaraz Glucose [Mass/Vol] 135 mg/dL Critically high 74-106 [facility] Comment on above: Performed By: #### C BC #### [facility] [address] [place] [address] Dr. Castro Alcaraz Potassium [Moles/Vol] 4.6 mmol/L Normal 3.5-5.1 [facility] Comment on above: Performed By: #### C BC #### [facility] [address] [address] [address] Castro Alcaraz Protein [Mass/Vol] 7.5 g/dL Normal 6.4-8.2 [facility] Comment on above: Performed By: #### C BC #### [facility] [address] [address] [address] Castro Alcaraz Sodium [Moles/Vol] 135 mmol/L Critically low 136-145 [facility] Comment on above: Performed By: #### C BC #### [facility] [address] [address] [address] Castro Alcaraz Urea nitrogen [Mass/Vol] 21.0 mg/dL Critically high 7.0-18.0 [facility] Comment on above: Performed By: #### C BC #### [facility] [address] [place] [address] Dr. Castro Alcaraz Urea nitrogen/Creatinine [Mass ratio] 26.9 mg/mg Normal [facility] Comment on above: Performed By: #### C BC #### [facility] [address] [place] [address] Dr. Castro Alcaraz [facility]23 SARS-CoV-2 (COVID-19) RNA LILIA+probe Ql (Unsp spec) Detected Critically abnormal NOT DETECTED [facility] Comment on above: Result Comment: This test is not yet approved or cleared by the [place] FDA. When there are no FDA-approved or cleared tests available, and other criteria are met, FDA can make tests available under an emergency access mechanism called an Emergency Use Authorization (EUA). The EUA for this test is supported by the [place] of Health and Human Service's declaration that circumstances exist to justify the emergency use of in vitro diagnostics for the detection and/or diagnosis of the virus that causes COVID-19. This EUA will remain in effect for the duration of the COVID-19 declaration justifying emergency of IVDs, unless it is terminated or revoked by the FDA (after which the test may no longer be used). Performed By: #### SHERLY HARVEY #### [facility] [address] [place] [address] Dr. Castro Alcaraz GROUP A STREP CULTUREon 12-23 S. pyogenes Ag Ql (Unsp spec) Culture Observations: Negative for Group A Streptococcus Normal [facility] Comment on above: Performed By: #### G HYACINTH MORENON #### [facility] [address] [place] [address] Dr. Castro Alcaraz INFLUENZA A AND B AGon 01-20 INFLUENZA A AG Negative Normal NEGATIVE SEE COMMENT [facility] Comment on above: Performed By: #### SHERLY HARVEY #### [facility] [address] [place] [address] Dr. Castro Alcaraz INFLUENZA B AG Negative Normal NEGATIVE SEE COMMENT [facility] Comment on above: Performed By: #### SHERLY HARVEY #### [facility] [address] [place] [address] Dr. Castro Alcaraz INTERNAL CONTROLS Within Normal Limits Normal Wi thin Normal Limits [facility] Comment on above: Performed By: #### SHERLY HARVEY #### [facility] [address] [place] [address] Dr. Castro Alcaraz STREPT SCREENon 01-20-2022 STREP SCREEN A Negative Normal NEGATIVE [facility] Comment on above: Performed By: #### HYACINTH SAUCEDAN #### [facility] [address] [place] [address] Dr. Castro Alcaraz Encounters Encounter Date Encounter Type Care Provider Facility Start: 12-19-2022 End: 12-19-2022 ambulatory LISHA ORTIZ Facility:[facility] Start: 11-26-2022 End: 11-27-[address] LILA KELSEY Facility:[facility] Start: 11-19-2022 End: 11-20-[address] LILA KELSEY Facility:[facility] Start: 11-06-2022 End: 11-07-[address] LILA KELSEY Facility:[facility] Start: 10-29-2022 End: 10-30-[address] LILA KELSEY Facility:[facility] Start: 10-01-2022 End: 10-02-[address] LILA KELSEY Facility:[facility] Start: 08-10-2022 End: 08-11-2022 ambulatory TOMAS RICHARDSON Facility:[facility] Start: 07-22-2022 End: 07-23-2022 ambulatory [facility] Start: 07-12-2022 End: 07-12-2022 ambulatory JACINTO DONATO . Facility:[facility] Start: 01-26-2022 End: 01-27-2022 ambulatory TWISTING FRAME CHANGER KARI RICHARDSON Facility:[facility] Start: 01-20-2022 End: 01-20-2022 ambulatory MALCOLM CHELSY . Facility:[facility] Plan of Treatment Date Care Activity Detail Author Start: 12-30-2022 ambulatory Ambulatory Facility:[facility] 1 Payers Date Payer Category Payer Unknown [id number] 1975 Unknown [id number] 1975 Unknown [id number] 2.16.84 [id number] 1975 Unknown [id number] 1976 Unknown [id number] 2.16.84 [id number] 1976 Unknown [id number] .16.84 [id number] 1976 Unknown [id number] .16.84 [id number] 1976 Unknown [id number] .16.84 [id number] 1976 Unknown [id number] .16.84 [id number] 1976 Unknown [id number] 2.16.84 [id number] 1976 Unknown [id number] 2.16.84 [id number] 1975 Unknown [id number] 2.16.84 [id number] 1959 Self-pay 1958 Unknown [id number] Clinical Note 07-22-2022 Note Date & Type Note Facility 07-22-2022 Note PROCEDURE: XR KNEE L T 4V or >, XR TIB_FIB LT 2V, XR ANKLE LT MIN 3 V HISTORY: Pain of left knee joint ; anterolateral knee and lower leg pain, bruising; fell 1 week ago COMPARISON: None. FINDINGS: BONES:No fracture, acute abnormality, or significant arthropathy. SOFT TISSUES:No visible soft tissue swelling. EFFUSION:None visible. OTHER: Negative. IMPRESSION: 1. No acute bone abnormality of the left knee, distal lower extremity, or ankle. Electronically authenticated by: BRIAN YEN Date: 2022-07-22 12:03 [facility] Clinical Note 07-22-2022 Note Date & Type Note Facility 07-22-2022 Note PROCEDURE: XR KNEE L T 4V or >, XR TIB_FIB LT 2V, XR ANKLE LT MIN 3 V HISTORY: Pain of left knee joint ; anterolateral knee and lower leg pain, bruising; fell 1 week ago COMPARISON: None. FINDINGS: BONES:No fracture, acute abnormality, or significant arthropathy. SOFT TISSUES:No visible soft tissue swelling. EFFUSION:None visible. OTHER: Negative. IMPRESSION: 1. No acute bone abnormality of the left knee, distal lower extremity, or ankle. Electronically authenticated by: BRIAN YEN Date: 2022-07-22 12:03 [facility] Clinical Note 07-22-2022 Note Date & Type Note Facility 07-22-2022 Note PROCEDURE: XR KNEE L T 4V or >, XR TIB_FIB LT 2V, XR ANKLE LT MIN 3 V HISTORY: Pain of left knee joint ; anterolateral knee and lower leg pain, bruising; fell 1 week ago COMPARISON: None. FINDINGS: BONES:No fracture, acute abnormality, or significant arthropathy. SOFT TISSUES:No visible soft tissue swelling. EFFUSION:None visible. OTHER: Negative. IMPRESSION: 1. No acute bone abnormality of the left knee, distal lower extremity, or ankle. Electronically authenticated by: BRIAN YEN Date: 2022-07-22 12:03 [facility] Summary Purpose Family History No Family History Records Found Advance Directives No Advanced Directives Records Found Additional Source Comments INFORMATION SOURCE (unrecogn ized section and content) DATE CREATED AUTHOR 12/26/2022 [facility] FOR RECORDS PERTAINING TO PATIENTS WHO ARE OR HAVE BEEN ENROLLED IN A CHEMICAL DEPENDENCY/SUBSTANCEABUSE PROGRAM, SOME INFORMATION MAY BE OMITTED. This clinical summary was aggregated from multiple sources. Caution should be exercised in using it in the provision of clinical care. This summary normalizes information from multiple sources, and as a consequence, information in this document may materially change the coding, format and clinical context of patient data. In addition, data may be omitted in some cases. CLINICAL DECISIONS SHOULD BE BASED ON THE PRIMARY CLINICAL RECORDS. [employer] provides no warranty or guarantee of the accuracy or completeness of information in this document.
[2023-12-24 19:32] VITALS: PULSE 96
--- NOTE | 2023-12-24 19:37 | ED_ITS ---
HPI - Dizziness General Chief Complaint: Dizziness Stated Complaint: dizziness, pain in back of head Time Seen by Provider: 12/24/23 19:29 Source: patient Mode of arrival: walk-in Limitations: language barrier History of Present Illness HPI Narrative: 48-year-old female presents for dizziness. She describes the spinning sensation that started this morning and generally is worse when she stands up. She has some tingling in both of her hands and both of her feet the past few days but the dizziness started today. No fever or cough. She has had some headache and pressure in the back of her head but there is been no trauma. No palpitations fever chest pain. No vomiting or diarrhea. She is never had this symptom before. Related Data Previous Rx's ?Medication ?Instructions ?Recorded meclizine 25 mg tablet 25 mg PO QID PRN dizziness #20 tabs 12/24/23 Allergies Allergy/AdvReac Type Severity Reaction Status Date / Time No Known Drug Allergies Allergy Verified 12/24/23 19:05 Review of Systems ROS Narrative A ten point review of systems is negative except as noted above. PFSH PFSH Social History Smoking status: Never smoker Exam Narrative Exam Narrative: Nurses note and vital signs reviewed and patient is not hypoxic. General: The patient appears well and in no apparent distress. Patient is resting comfortably on cart. Skin: Warm, dry, no pallor noted. There is no rash noted. Head: Normocephalic, atraumatic Eye: Normal conjunctiva, no drainage, EOMI. PERRL Ears, Nose, Mouth, and Throat: oral mucosa is moist. Nares patent. Ear canals patent. Tm's without Erythema Cardiovascular: Regular Rate and Rhythm Respiratory: Patient is in no distress, no accessory muscle use, lungs are clear to auscultation, no wheezing, rales or rhonchi Back: non-tender, GI: Soft and nontender Musculoskeletal: The patient has no evidence of calf tenderness, no pitting edema, symmetrical pulses noted bilaterally Neurological: Awake and alert, upper and lower extremity strength intact Psychiatric: Cooperative Constitutional Vital Signs, click to edit/add: Last Vital Signs Temp 98.1 F 12/24/23 19:05 Pulse 95 H 12/24/23 19:05 Resp 18 12/24/23 19:05 BP 155/101 H 12/24/23 19:08 Pulse Ox 98 12/24/23 19:10 O2 Del Method Room Air 12/24/23 19:05 Course Vital Signs Vital signs: Vital Signs Temperature 98.1 F 12/24/23 19:05 Pulse Rate 95 H 12/24/23 19:05 Respiratory Rate 18 12/24/23 19:05 Blood Pressure 155/101 H 12/24/23 19:05 Pulse Oximetry 99 12/24/23 19:05 Oxygen Delivery Method Room Air 12/24/23 19:05 Temperature 98.1 F 12/24/23 19:05 Pulse Rate 95 H 12/24/23 19:05 Respiratory Rate 18 12/24/23 19:05 Blood Pressure 155/101 H 12/24/23 19:08 Pulse Oximetry 98 12/24/23 19:10 Oxygen Delivery Method Room Air 12/24/23 19:05 MDM - Dizziness MDM Narrative Medical decision making narrative: The patient feels improved after being given Antivert and her workup is negative, including CT brain. She will be discharged home with a prescription for Antivert. Treatment diagnosis and follow-up were discussed with the patient and her family. Differential Diagnosis Differential diagnosis: Likely benign paroxysmal positional vertigo, orthostatic hypotension and other (Dehydration, anemia) Lab Data Attestation: I reviewed the patient's lab results. Labs: Lab Results 12/24/23 12/24/23 Range/Units 16:21 20:30 WBC 10.2 (4.0-11.0) 10^3/uL RBC 4.29 (4.20-5.40) 10^6/uL Hgb 12.3 (12.0-16.0) g/dL Hct 37.8 (36.0-48.0) % MCV 88.1 (81.0-99.0) fL MCH 28.7 (26.7-34.0) pg MCHC 32.5 (29.9-35.2) g/dL RDW 13.3 (11.0-15.0) % Plt Count 257 (150-450) 10^3/uL MPV 10.6 (9.5-13.5) fL Neut % (Auto) 55.5 (43.0-75.0) % Lymph % (Auto) 34.4 (20.5-60.0) % [place] % (Auto) 6.9 (1.7-12.0) % Eos % (Auto) 2.4 (0.9-7.0) % Baso % (Auto) 0.4 (0.2-2.0) % Neut # (Auto) 5.6 (1.4-6.5) 10^3/uL Lymph # (Auto) 3.5 (1.2-3.8) 10^3/uL Flagler # (Auto) 0.7 (0.3-0.8) 10^3/uL Eos # (Auto) 0.2 (0.0-0.7) 10^3/uL Baso # (Auto) 0.0 (0.0-0.1) 10^3/uL Abs Immat Gran (auto) 0.04 H (0.00-0.03) 10^3/uL Imm/Tot Granulo (auto) 0.4 (0.0-0.5) % Sodium 136 (136-145) mmol/L Potassium 3.7 (3.5-5.1) mmol/L Chloride 101 (98-107) mmol/L Carbon Dioxide 26.7 (21.0-32.0) mmol/L Anion Gap 12.0 BUN 18.0 (7.0-18.0) mg/dL Creatinine 0.78 (0.55-1.02) mg/dL Est GFR ( Amer) >60 (>=60) Est GFR (Non-Af Amer) >60 (>=60) BUN/Creatinine Ratio 23.1 Glucose 103 (74-106) mg/dL Calcium 9.4 (8.5-10.1) mg/dL Troponin I High Sens <4.0 L (4.0-51.3) pg/mL Urine Color Lt. yellow (YELLOW) Urine Clarity Clear (CLEAR) Urine pH 6.0 (5.0-9.0) Ur Specific [place] 1.010 (1.005-1.025) Urine Protein Negative (NEG/TRACE) mg/dL Urine Glucose (UA) Negative (NEGATIVE) mg/dL Urine Ketones Negative (NEGATIVE) mg/dL Urine Occult Blood Trace-l (NEGATIVE) Urine Nitrite Negative (NEGATIVE) Urine Bilirubin Negative (NEGATIVE) Urine Urobilinogen 0.2 (0.2-1.0) EU/dL Ur Leukocyte Esterase Negative (NEGATIVE) Urine RBC None seen (0-2) #/HPF Urine WBC None seen (NONE SEEN) #/HPF Ur Squamous Epith Cells Few A (NONE/RARE) #/LPF Urine Crystals None seen (None Seen) #/HPF Urine Bacteria None seen (NONE SEEN) #/HPF Urine Casts None seen (NONE SEEN) #/LPF Urine Mucus None seen (NONE SEEN) Ur Culture Indicated? No Imaging Data CT scan - head: Radiologist's impression: ITS Impressions Head CT 12/24/23 22:08 IMPRESSION: No acute intracranial abnormality noted. Electronically authenticated by: GARCIA SCHULTZ Date: 12/24/2023 22:34 ECG Data Attestation: I personally reviewed and interpreted this ECG as follows: (EKG on my interpretation shows sinus rhythm with a rate of 96 and no acute changes) Discharge Plan Discharge Stand Alone Forms: Portal Instructions Chief Complaint: Dizziness Clinical Impression: Vertigo Patient Disposition: Home, Self-Care Time of Disposition Decision: 22:45 Condition: Good Mode of Transportation: Private Vehicle Prescriptions / Home Meds: New meclizine 25 mg tablet 25 mg PO QID PRN (Reason: dizziness) Qty: 20 0RF Print Language: Occitan Instructions: Vertigo (ED) Referrals: Mary Alice Nicolas STICKER OPERATOR [Primary Care Provider] - 1 week
[2023-12-24 19:41] LABS: Basophils Percent Auto 0.4 % (0.2-2.0); Eosinophils Absolute Auto 0.2 10^3/uL (0.0-0.7); Eosinophils Percent Auto 2.4 % (0.9-7.0); Hematocrit 37.8 % (36.0-48.0); Hemoglobin 12.3 g/dL (12.0-16.0); Immature Granulocytes Abs Auto 0.04 10^3/uL (0.00-0.03); Immature Granulocytes Pct Auto 0.4 % (0.0-0.5); Lymphocytes Absolute Auto 3.5 10^3/uL (1.2-3.8); Lymphocytes Percent Auto 34.4 % (20.5-60.0); Mean Corpuscular HGB Conc 32.5 g/dL (29.9-35.2); Mean Corpuscular Hemoglobin 28.7 pg (26.7-34.0); Mean Corpuscular Volume 88.1 fL (81.0-99.0); Mean Platelet Volume 10.6 fL (9.5-13.5); Monocytes Absolute Auto 0.7 10^3/uL (0.3-0.8); Monocytes Percent Auto 6.9 % (1.7-12.0); Neutrophils Absolute Auto 5.6 10^3/uL (1.4-6.5); Neutrophils Percent Auto 55.5 % (43.0-75.0); Platelet Count 257 10^3/uL (150-450); Red Blood Count 4.29 10^6/uL (4.20-5.40); Red Cell Distribution Width 13.3 % (11.0-15.0); White Blood Count 10.2 10^3/uL (4.0-11.0)
[2023-12-24] MEDS: MECLIZINE HCL 12.5 MG TABLET 25 MG PO (19:52)
[2023-12-24 19:57] LABS: BUN Creatinine Ratio 23.1; Calcium 9.4 mg/dL (8.5-10.1); Carbon Dioxide 26.7 mmol/L (21.0-32.0); Chloride 101 mmol/L (98-107); Estimated GFR (African America >60 (>=60); Estimated GFR (Non-African Ame >60 (>=60); Glucose 103 mg/dL (74-106); Potassium 3.7 mmol/L (3.5-5.1); Sodium 136 mmol/L (136-145); Troponin I High Sensitivity <4.0 pg/mL (4.0-51.3)
[2023-12-24 20:39] LABS: Bilirubin Urine NEGATIVE (NEGATIVE); Blood Urine TRACE-L (NEGATIVE); Clarity Urine CLEAR (CLEAR); Color Urine LT. YELLOW (YELLOW); Glucose Urine UA NEGATIVE (NEGATIVE); Ketones Urine NEGATIVE (NEGATIVE); Leukocyte Esterase Urine NEGATIVE (NEGATIVE); Nitrite Urine NEGATIVE (NEGATIVE); Protein Urine NEGATIVE (NEG/TRACE); Urobilinogen Urine 0.2 EU/dL (0.2-1.0)
[2023-12-24 20:45] LABS: Bacteria Urine NONE SEEN #/HPF (NONE SEEN); Cast Seen? NONE SEEN #/LPF (NONE SEEN); Crystals Seen? None Seen #/HPF (None Seen); Mucus Urine NONE SEEN (NONE SEEN); RBC Urine NONE SEEN #/HPF (0-2); Squamous Epithelial Cell Urine FEW #/LPF (NONE/RARE); Urine Culture Indicated NO; WBC Urine NONE SEEN #/HPF (NONE SEEN)
--- NOTE | 2023-12-24 22:08 | CT_ITS ---
The [address] [address] Patient Name: BECKY OLIVAS MRN: [id number] date: 1975 Sex: F Assigned Patient Location: ER Current Patient Location: ER Accession/Order Number: [id number] Exam Date: 12/24/2023 22:10 Report Date: 12/24/2023 22:34 At the request of: JOSEFA BERRIOS Procedure: CT head/brain wo con EXAM: CT head/brain wo con CLINICAL INDICATION: Dizziness, posterior headache TECHNIQUE: Unenhanced computerized tomography of the head was performed. Automated dose reduction technique was employed. COMPARISON: None. FINDINGS: The ventricles are normal in size, configuration, and position for age. There is no intra- or extra-axial mass, hemorrhage, or fluid collection. No areas of abnormal mass effect or attenuation are noted. Visualized paranasal sinuses are free of mucosal disease. No depressed calvarial fracture. CT/CT head/brain wo con IMPRESSION: No acute intracranial abnormality noted. Electronically authenticated by: GARCIA SCHULTZ Date: 12/24/2023 22:34
== END 2023-12-24 23:05 | disposition home or self-care (01) ==
PROVIDERS: Emergency Provider Emergency Medicine; PCP Nurse Practitioner
DX: R42 Dizziness and giddiness (principal)
CPT/HCPCS: 36415; 70450; 80048; 81001; 84484; 85025; 93005; 99285

== ENCOUNTER 2024-01-21 16:18 | Emergency (ER) | payer BC, SELFPAY ==
[2024-01-21 16:22] VITALS: BP 140/99; PULSE 99; TEMP 36.6; O2SAT 97; BMI 37.4
--- NOTE | 2024-01-21 16:30 | ED.SKABFB1 ---
HPI - Skin/Abscess/Foreign Bdy General Chief complaint: Skin/Abscess/Foreign Body Stated complaint: lump Time Seen by Provider: 01/21/24 16:20 Source: patient and family Mode of arrival: walk-in Limitations: no limitations History of Present Illness HPI narrative: This patient is here with a tender area just below her ear canal near the TMJ joint on her right side. It has been there for several weeks but seems to be getting larger and more tender. She has not had a previous infection or skin problem in this area. She has not been running a fever. Not had previous use of antibiotics. The ear itself is not tender. She is here with her and they do communicate in Estonian effectively. Related Data Home Medications ?Medication ?Instructions ?Recorded ?Confirmed No Known Home Medications 01/21/24 01/21/24 Allergies Allergy/AdvReac Type Severity Reaction Status Date / Time No Known Drug Allergies Allergy Verified 12/24/23 19:05 PFSH PFSH Social History Smoking status: Never smoker Exam Narrative Exam Narrative: Well-hydrated well-nourished female here with her . Vital signs are stable. She denies any history of diabetes. She has not been having abscess or any other structural or functional problems. Clinical examination shows just below the TMJ area over the proximal mandibular area there is a fluctuant area that is come to ahead and 2 separate areas are approximately 1 and half centimeters apart. It is freely movable. It is not felt to be a lymph node. It is felt to be an infected cystic structure. She has pretty oily skin in this area. Constitutional Vital Signs, click to edit/add: Last Vital Signs Temp 98 F 01/21/24 16:22 Pulse 99 H 01/21/24 16:22 Resp 20 01/21/24 16:22 BP 140/99 H 01/21/24 16:22 Pulse Ox 97 01/21/24 16:22 O2 Del Method Room Air 01/21/24 16:22 Course Vital Signs Vital signs: Vital Signs Temperature 98 F 01/21/24 16:22 Pulse Rate 99 H 01/21/24 16:22 Respiratory Rate 20 01/21/24 16:22 Blood Pressure 140/99 H 01/21/24 16:22 Pulse Oximetry 97 01/21/24 16:22 Oxygen Delivery Method Room Air 01/21/24 16:22 Temperature 98 F 01/21/24 16:22 Pulse Rate 99 H 01/21/24 16:22 Respiratory Rate 20 01/21/24 16:22 Blood Pressure 140/99 H 01/21/24 16:22 Pulse Oximetry 97 01/21/24 16:22 Oxygen Delivery Method Room Air 01/21/24 16:22 MDM - Skin/Abscess/Foreign Bdy MDM Narrative Medical decision making narrative: After explaining the procedure we injected the most tender area with lidocaine 1% with epinephrine. She tolerated that well. #11 blade was used to incise the area of maximum tenderness and fluctuance and a good amount of purulent material was recovered. We did use a hemostat to break up some more sebaceous type material. A tiny secondary incision was made where the other area of maximum fluctuance was at and a little bit less purulent material was recovered from this area. A dressing was applied. We discussed start her on some antibiotic therapy. They have actually seen Dr. olivo in [place] for their daughter who had a similar problem. They were advised to follow-up there as a further procedure may be necessary for definitive treatment Discharge Plan Discharge Stand Alone Forms: Portal Instructions Chief Complaint: Skin/Abscess/Foreign Body Clinical Impression: Encounter for incision and drainage procedure Patient Disposition: Home, Self-Care Time of Disposition Decision: 16:46 Prescriptions / Home Meds: No Action No Known Home Medications Print Language: Malawian Additional Instructions: Warm compresses. Apply and change dressing daily/doxycycline/follow-up with Dr. olivo Referrals: Mary Alice Nicolas E COMMERCE DIRECTOR [Primary Care Provider] - 1 week
[2024-01-21] MEDS: LIDOCAINE HCL 1%-EPINEPHRINE 1:100,000 20 ML MDV INJ (16:34)
== END 2024-01-21 16:56 | disposition home or self-care (01) ==
PROVIDERS: Emergency Provider Emergency Medicine Emergency Medical Services; PCP Nurse Practitioner
DX: L72.9 Follicular cyst of the skin and subcutaneous tissue, unspecified (principal)
CPT/HCPCS: 10060; 99284